=== PATIENT | female | born 2000 | race Caucasian/White ===

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

== ENCOUNTER 2023-03-02 12:10 | Emergency (ER) | payer MEDICAID, OTHER ==
[~2023-03-02] VITALS: Ht 167.6 cm; Wt 113.4 kg
[~2023-03-02 12:10] MED LIST changes: +IBUP-2029 MT; +OMEP40CA20 MT
[2023-03-02 12:43] VITALS: BP 137/72; PULSE 66; RESP 16; TEMP 98.6; O2SAT 100
== END 2023-03-02 13:30 | disposition left against medical advice (07) ==
LOC: ER 12:42
DX: Z53.21 Procedure and treatment not carried out due to patient leaving prior to being seen by health care provider (principal)
CPT/HCPCS: 99281

== ENCOUNTER 2023-10-12 09:12 | Emergency (ER) | payer MEDICAID, OTHER ==
[~2023-10-12] VITALS: Ht 167.6 cm; Wt 113.0 kg
[2023-10-12 09:27] VITALS: O2SAT 100
[2023-10-12] MEDS: OXYCODONE HCL/ACETAMINOPHEN 5/325MG TABLET PO ONE (11:20)
[2023-10-12] MEDS ORDERED: SILV50CR31 TP (13:00)
[2023-10-12] MEDS ORDERED: KETO10TA2 MT (13:01)
[2023-10-12 14:15] VITALS: BP 138/85; PULSE 65; RESP 16; TEMP 98.2
== END 2023-10-12 14:41 | disposition home or self-care (01) ==
LOC: ER 09:39
DX: T24.112A Burn of first degree of left thigh, initial encounter (principal); Z79.899 Other long term (current) drug therapy; X11.8XXA Contact with other hot tap-water, initial encounter; Y93.89 Activity, other specified; Y92.89 Other specified places as the place of occurrence of the external cause; Y99.8 Other external cause status
CPT/HCPCS: 81025; 99283; Z7610

== ENCOUNTER 2024-06-07 20:44 | Emergency (ER) | payer MEDICAID, OTHER ==
[~2024-06-07] VITALS: Ht 167.6 cm; Wt 114.0 kg
[~2024-06-07 20:44] MED LIST changes: +KETO10TA2 MT; +SILV50CR31 TP
[2024-06-07 21:11] VITALS: O2SAT 99
[2024-06-08] MEDS ORDERED: AMOX1TAB16 MT (00:54)
[2024-06-08] MEDS: DEXAMETHASONE 10 MG/ML VIAL IM ONE (01:00)
[2024-06-08] MEDS: IBUPROFEN 100MG/5ML UDC PO ONE (01:00)
[2024-06-08] MEDS: AMOXICILLIN/POTASSIUM CLAVULANATE 875/125MG TAB PO ONE (01:00)
[2024-06-08] MEDS ORDERED: IBUP-2030 MT (01:01)
[2024-06-08] MEDS: DEXAMETHASONE 10 MG/ML VIAL IM NR (01:15)
[2024-06-08] MEDS: AMOXICILLIN/POTASSIUM CLAVULANATE 875/125MG TAB PO NR (01:15)
[2024-06-08] MEDS: IBUPROFEN 100MG/5ML UDC PO NR (01:15)
[2024-06-08 01:25] VITALS: BP 129/66; PULSE 78; RESP 18; TEMP 36.83628; O2SAT 99
== END 2024-06-08 01:25 | disposition home or self-care (01) ==
LOC: ER 20:44
DX: J02.9 Acute pharyngitis, unspecified (principal); Z79.899 Other long term (current) drug therapy
CPT/HCPCS: 99283; 96372; J1100